=== PATIENT | male | born 1945 | race Hispanic/Latino ===

== ENCOUNTER 2021-10-03 01:47 | Emergency (ER) | payer SELFPAY ==
[2021-10-03] MEDS ORDERED: Sodium Bicarb 50 MEQ/50 ML Abboject 8.4% SYRINGE IVP ONE (01:48)
[2021-10-03] MEDS ORDERED: EPINEPHrine 1 MG/10 ML Abboject SYRINGE IVP ONE (01:48)
== END 2021-10-03 04:35 | disposition expired ==
LOC: MADERS 01:47
DX: I46.9 Cardiac arrest, cause unspecified (principal)
CPT/HCPCS: 96374; 96375; J0171